=== PATIENT | female | born 1960 | race Caucasian/White ===

== ENCOUNTER → 2016-11-01 | Outpatient (CLI) | payer SELFPAY ==
[~2016-11-01] MED LIST: ELAVIL50 MG PO; TRAMADOL HCL50 MG PO
== END | disposition home or self-care (01) ==
LOC: RAD 09:41
DX: J44.9 Chronic obstructive pulmonary disease, unspecified (principal); F17.200 Nicotine dependence, unspecified, uncomplicated
CPT/HCPCS: 71020

== ENCOUNTER → 2017-03-30 | Outpatient (CLI) | payer SELFPAY | END | disposition home or self-care (01) | LOC: RAD 12:54 | DX: M25.561 Pain in right knee (principal) | CPT/HCPCS: 73564 ==

== ENCOUNTER 2017-04-14 13:33 | Emergency (ER) | payer SELFPAY ==
[~2017-04-14] VITALS: Ht 162.6 cm; Wt 48.9 kg
[~2017-04-14 13:33] MED LIST changes: -ULTRAM50 MG PO; -ZOFRAN ODT4 MG PO
[2017-04-14 14:24] LABS: HEMATOCRIT 42.7 % (36.0-46.0); MCH 31.3 PG (29.0-34.0); PLATELET COUNT 241 K/uL (156-360); RBC DIS.WIDTH-SD 40.9 % (39-53); RED BLOOD COUNT 4.64 M/uL (3.80-5.20); WHITE BLOOD COUNT 5.8 K/uL (4.1-10.2)
[2017-04-14 14:31] LABS: PROTHROMBIN TIME 11.3 SEC (10.2-12.9)
[2017-04-14 14:32] LABS: CHLORIDE 105 mEq/L (99-109); POTASSIUM 3.8 mEq/L (3.7-5.4); SODIUM 143 mEq/L (136-147)
[2017-04-14 14:34] LABS: PTT 33.1 SEC (25-37)
[2017-04-14 14:35] LABS: GLUCOSE 101 mg/dL (70-99)
[2017-04-14 14:36] LABS: ANION GAP 9 MEQ/L (2-14)
[2017-04-14 14:37] LABS: TOTAL BILIRUBIN 0.4 mg/dL (0.0-1.0)
[2017-04-14 14:38] LABS: ALKALINE PHOSPHATASE 77 IU/L (3-129); GFR ESTIMATE (CALCULATED) > 59 mL/min/
[2017-04-14 14:39] LABS: UREA NITROGEN (BUN) 16 mg/dL (9-23)
[2017-04-14] MEDS ORDERED: ULTRAM50 MG PO (16:37)
[2017-04-14] MEDS ORDERED: ZOFRAN ODT4 MG PO (16:37)
[2017-04-14 16:48] VITALS: BP 118/66
== END 2017-04-14 16:49 | disposition home or self-care (01) ==
LOC: EME 13:33
DX: I74.3 Embolism and thrombosis of arteries of the lower extremities (principal); R20.2 Paresthesia of skin; F17.210 Nicotine dependence, cigarettes, uncomplicated; J44.9 Chronic obstructive pulmonary disease, unspecified; F32.9 Major depressive disorder, single episode, unspecified; Z88.5 Allergy status to narcotic agent
CPT/HCPCS: 80053; 81003; 83605; 85027; 85610; 85730

== ENCOUNTER → 2017-04-14 | Outpatient (CLI) | payer SELFPAY ==
[~2017-04-14] MED LIST changes: +ULTRAM50 MG PO; +ZOFRAN ODT4 MG PO
== END | disposition home or self-care (01) ==
LOC: RAD 08:43
DX: M51.37 Other intervertebral disc degeneration, lumbosacral region (principal); I70.209 Unspecified atherosclerosis of native arteries of extremities, unspecified extremity; R20.0 Anesthesia of skin
CPT/HCPCS: 72100; 93926

== ENCOUNTER 2017-05-05 12:34 | Day surgery (SDC) | payer SELFPAY ==
[~2017-05-05] VITALS: Ht 162.6 cm; Wt 50.0 kg
[~2017-05-05 12:34] MED LIST changes: +ADVAIR 250/501 DISK IH; +ASPIRIN81 M2 PO; +CILOSTAZOL50 MG PO; +CRESTOR20 MG PO; +PROAIR RESPICL90 MCG IH; +ULTRAM50 MG PO; +WOMEN'S DAILY1 EAC4 PO; +ZOFRAN ODT4 MG PO
[2017-05-05] MEDS ORDERED: ELIQUIS5 MG PO (13:33)
== END 2017-05-05 18:04 | disposition home or self-care (01) ==
LOC: CATH 12:34
DX: I70.213 Atherosclerosis of native arteries of extremities with intermittent claudication, bilateral legs (principal); Z79.82 Long term (current) use of aspirin; Z87.891 Personal history of nicotine dependence
CPT/HCPCS: C1725; C1760; C1769; C1894; J1644; J2250; J3010; S0020

== ENCOUNTER → 2017-08-25 | Outpatient (CLI) | payer BC ==
[~2017-08-25] MED LIST changes: +ELIQUIS5 MG PO
== END | disposition home or self-care (01) ==
LOC: CDC 14:01
DX: Z01.810 Encounter for preprocedural cardiovascular examination (principal); R94.31 Abnormal electrocardiogram [ECG] [EKG]
CPT/HCPCS: 93000

== ENCOUNTER 2017-09-07 21:53 | Inpatient (IN) | payer BC ==
[~2017-09-07] VITALS: Ht 162.6 cm; Wt 52.5 kg
[2017-09-07 21:30] VITALS: BP 160/82
[~2017-09-07 21:53] MED LIST changes: -ELAVIL50 MG PO; +ELAVIL75 MG PO
[2017-09-07 22:00] VITALS: BP 147/84
[2017-09-07 23:00] VITALS: BP 112/72
[2017-09-08 13:13] VITALS: BP 137/66
[2017-09-08 20:30] LABS: TROP-I INTERPRETATION NEGATIVE; TROPONIN-I 0.02 ng/mL (0.0-0.30)
[2017-09-08 21:05] VITALS: BP 160/82
[2017-09-08 21:30] VITALS: BP 151/72
[2017-09-08 22:00] VITALS: BP 147/84
[2017-09-08 23:00] VITALS: BP 115/96
[2017-09-09] VITALS (8 sets, daily range): BP systolic 118–146; BP diastolic 65–78
[2017-09-09 06:57] LABS: HEMATOCRIT 37.6 % (36.0-46.0); MCHC 34.6 G/DL (30.0-36.0); MCV 89.7 FL (83-99); PLATELET COUNT 206 K/uL (156-360); RBC DIS.WIDTH-CV 12.1 % (11.8-14.6); RBC DIS.WIDTH-SD 39.6 % (39-53); RED BLOOD COUNT 4.19 M/uL (3.80-5.20); WHITE BLOOD COUNT 6.4 K/uL (4.1-10.2)
[2017-09-09 07:12] LABS: CHLORIDE 104 MEQ/L (99-109); CREATININE 0.9 MG/DL (0.6-1.3); GFR ESTIMATE (CALCULATED) > 59 mL/min/; GLUCOSE 115 mg/dL (70-99); POTASSIUM 4.6 MEQ/L (3.7-5.4); SODIUM 137 MEQ/L (136-147); UREA NITROGEN (BUN) 18 mg/dL (9-23)
[2017-09-09 07:13] LABS: TROP-I INTERPRETATION NEGATIVE; TROPONIN-I < 0.01 ng/mL (0.0-0.30)
[2017-09-09] MEDS ORDERED: NORCO 5/3251 TABLET PO (17:05)
== END 2017-09-09 17:19 | disposition home or self-care (01) | DRG 254 ==
LOC: ENRESERV 21:53 → 2SOUTH 09-08 10:23 → ENRESERV 09-08 17:50 → 2SOUTH 09-08 19:22 → ENRESERV 09-08 19:23 → 4WEST 09-08 21:04 → ENRESERV 09-09 05:06 → 4EAST 09-09 07:18
PROVIDERS: Surgery
DX: I70.221 Atherosclerosis of native arteries of extremities with rest pain, right leg (principal); Z79.82 Long term (current) use of aspirin; Z98.62 Peripheral vascular angioplasty status; Z87.891 Personal history of nicotine dependence; Z79.02 Long term (current) use of antithrombotics/antiplatelets
CPT/HCPCS: 80048; 84484; 85027; 86850; 86900; 86901; 87641; 93005; C1768; J0131; J0690; J1100; J1644; J1650; J2250; J2405; J2710; J2720; J3010; J7120; J7643; S0020